=== PATIENT | male | born 1960 | race African-American/Black ===

== ENCOUNTER 2016-07-26 22:03 | Emergency (ER) | payer MEDICAID, OTHER ==
[~2016-07-26] VITALS: Ht 175.3 cm; Wt 85.5 kg
[2016-07-26 22:13] VITALS: Ht 175.3 cm; Wt 85.5 kg
--- NOTE | 2016-07-26 22:16 | QN ---
Documentation Comment Patient seen immediately upon arrival as he arrived by ambulance. The patient will be sent to triage for vital signs and will be seen by another provider. Medical screening exam was initiated. ROSE LEAHY MD Jul 26, 2016 22:16
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
--- NOTE | 2016-07-26 23:41 | RADRPT ---
PROCEDURE: XR Tibia and Fibula. CLINICAL INDICATION: Right calf pain at the lateral aspect TECHNIQUE: AP, lateral and oblique views of the right tibia and fibula were obtained. COMPARISON: No prior studies are available for comparison. FINDINGS: Reference marker is directed towards the lateral aspect of proximal right calf, without evident unde rlying radiographic abnormality There is normal mineralization and alignment. No fracture or osseous lesion is identified. The joint s are unremarkable. There are normal soft tissues without evidence of soft tissue swelling. IMPRESSION: Normal right tibia and fibula. RPTAT: [facility] Physician Davon Date Time Electronically viewed and signed by Physician Davon on 07/26/2016 23:40 RS/
[2016-07-27] MEDS ORDERED: IBUP-1542 PO (00:03)
== END 2016-07-27 00:20 | disposition home or self-care (01) ==
LOC: FTE 22:03
DX: S80.11XA Contusion of right lower leg, initial encounter (principal); F17.210 Nicotine dependence, cigarettes, uncomplicated; V03.10XA Pedestrian on foot injured in collision with car, pick-up truck or van in traffic accident, initial encounter
CPT/HCPCS: 73590; Z7502

== ENCOUNTER 2018-01-30 14:37 | Emergency (ER) | END 2018-01-30 16:36 | disposition home or self-care (01) ==